=== PATIENT | male | born 1965 | race Caucasian/White ===

== ENCOUNTER 2021-03-19 15:29 | Emergency (ER) | payer OTHER, MEDICAID ==
[~2021-03-19] VITALS: Ht 175.3 cm; Wt 70.3 kg
--- NOTE | 2021-03-19 15:45 | NUR ---
Pt brought by self,A&OX4, pt presents to ER with high blood sugar current BS 567, pt states he in not compliant with insulin since he does not have a refrigerator, skin pink and warm , cap refill <3, VSS , respirations even and unlabored.
[2021-03-19 15:47] VITALS: BP_SYST 138
[2021-03-19 16:48] LABS: BASOPHILS # (AUTO) 0.1 K/uL (0.0-0.2); BASOPHILS % (AUTO) 0.8 % (0.0-2.0); EOSINOPHILS % (AUTO) 0.7 % (0.0-4.0); HEMATOCRIT 41.6 % (36-54); HEMOGLOBIN 14.2 g/dL (14.0-18.0); LYMPHOCYTES # (AUTO) 2.1 K/uL (1.0-5.5); LYMPHOCYTES % (AUTO) 29.8 % (20.5-51.5); MEAN CORPUSCULAR HEMOGLOBIN 31 pg (27-31); MEAN CORPUSCULAR HGB CONC 34 % (32-36); MEAN CORPUSCULAR VOLUME 91 fL (79.0-98.0); MONOCYTES # (AUTO) 0.5 K/uL (0.0-1.0); MONOCYTES % (AUTO) 6.7 % (1.7-9.3); NEUTROPHILS # (AUTO) 4.4 K/uL (1.8-7.7); PLATELET COUNT (AUTO) 228 K/uL (130-430); RED BLOOD CELL COUNT(AUTO) 4.57 MIL/uL (4.2-6.2); WHITE BLOOD COUNT (AUTO) 7.1 K/uL (4.8-10.8)
[2021-03-19 17:40] LABS: BILIRUBIN,URINE NEGATIVE (NEGATIVE); BLOOD, URINE NEGATIVE (NEGATIVE); CLARITY/URINE CLEAR (CLEAR); COLOR,URINE YELLOW (YELLOW); GLUCOSE,URINE 3+ (NEGATIVE); KETONES,URINE NEGATIVE (NEGATIVE); LEUKOCYTE ESTERASE ,URINE NEGATIVE (NEGATIVE); NITRITE, URINE NEGATIVE (NEGATIVE); PROTEIN URINE NEGATIVE (NEGATIVE); UROBILINOGEN,URINE 0.2 (0.2-1.0)
[2021-03-19 17:45] LABS: CREATININE 0.84 mg/dL (0.55-1.30); POTASSIUM 4.7 mmol/L (3.5-5.1)
[2021-03-19 17:52] LABS: ALBUMIN 3.5 g/dL (3.4-4.8); TOTAL BILIRUBIN 0.4 mg/dL (0.0-1.0)
[2021-03-19] MEDS ORDERED: LR 2,000 ML IV ONE (18:00)
[2021-03-19 18:01] LABS: BACTERIA,URINE RARE /HPF (None Seen); RBC,URINE NONE SEEN /HPF (0-3); WBC,URINE NONE SEEN /HPF (0-3)
--- NOTE | 2021-03-19 20:05 | NUR ---
CURLY Pimentel examining patient.
[2021-03-19] MEDS ORDERED: INSULIN REGULAR, HUMAN 10 UNITS/0.1 ML INJ IVP ONE (20:15)
[2021-03-19] MEDS ORDERED: HYDROcodone/ACETAMIN 10-325 MG TAB PO ONE (21:15)
[2021-03-19] MEDS ORDERED: NEU300 PO (22:33)
[2021-03-19] MEDS ORDERED: METF-518 PO (22:33)
--- NOTE | 2021-03-19 23:32 | NUR ---
MOVED TO BED 2. REPORT RECEIVED FROM SALLY MONTAÑO
[2021-03-20] MEDS ORDERED: LR 500 ML IV ONE (01:00)
[2021-03-20] MEDS ORDERED: INSULIN REGULAR, HUMAN 10 UNITS/0.1 ML INJ IVP ONE ×2 (01:00→01:45)
[2021-03-20] MEDS ORDERED: LR 1,000 ML IV ONE (01:15)
--- NOTE | 2021-03-20 01:47 | NUR ---
PATIENT ASLEEP IN BED. PATIENT AROUSABLE WITH VOICE. RESTING COMFORTABLY.
--- NOTE | 2021-03-20 02:06 | NUR ---
PATIENT OUT OF BED TO URINATE. PATIENT REPORTS FEELING BETTER.
[2021-03-20 02:44] VITALS: BP_SYST 126
--- NOTE | 2021-03-20 02:44 | NUR ---
[id number] given written and verbal discharge instructions and verbalizes understanding. ER MD discussed with patient the results and treatment provided. Patient in stable condition. ID arm band removed. IV catheter removed intact and dressing applied, no active bleeding. No Rx given. Patient educated on pain management and to follow up with PMD. Pain Scale 0/10 Opportunity for questions provided and answered.
== END 2021-03-20 02:44 | disposition home or self-care (01) ==
LOC: SED 15:29
DX: E11.65 Type 2 diabetes mellitus with hyperglycemia (principal); E11.40 Type 2 diabetes mellitus with diabetic neuropathy, unspecified; F12.90 Cannabis use, unspecified, uncomplicated; Z59.00 Homelessness unspecified; Z88.0 Allergy status to penicillin; Z88.1 Allergy status to other antibiotic agents; Z79.899 Other long term (current) drug therapy; Z79.84 Long term (current) use of oral hypoglycemic drugs
CPT/HCPCS: 36415; 80053; 81000; 82962; 84484; 85025; 96361 ×2; 96374; 96376; 99284; J1815 ×2; 93005

== ENCOUNTER 2021-03-21 04:15 | Emergency (ER) | payer OTHER, MEDICAID ==
[~2021-03-21] VITALS: Ht 175.3 cm; Wt 70.3 kg
[~2021-03-21 04:15] MED LIST: METF-518 PO; NEU300 PO
--- NOTE | 2021-03-21 04:30 | NUR ---
Pt seen by Dr. Ocampo in waiting area, orders were started there ,well tolerated
[2021-03-21 04:32] VITALS: BP_SYST 181
--- NOTE | 2021-03-21 04:44 | NUR ---
Initial accu chk critical Hi at above 600
[2021-03-21] MEDS ORDERED: NACL 0.9% 1,000 ML IV ONE (04:45)
[2021-03-21] MEDS ORDERED: INSULIN REGULAR, HUMAN 10 UNITS/0.1 ML INJ IVP ONE (04:45)
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
--- NOTE | 2021-03-21 06:09 | NUR ---
IVF and med therapies well tolerated
--- NOTE | 2021-03-21 06:21 | NUR ---
Patient to ER inside hallway to [facility] for evaluation. Side rails up.
[2021-03-21] MEDS ORDERED: LR 1,000 ML IV ONE (06:45)
--- NOTE | 2021-03-21 07:22 | NUR ---
Patient left AMA. Dr. Deepali Yadav aware and signed AMA paper. Patient stated has no pain just wants to go home. ID arm band removed. IV catheter removed intact and dressing applied, no active bleeding. Pain Scale 0.
== END 2021-03-21 07:15 | disposition left against medical advice (07) ==
LOC: SED 04:15
DX: S22.42XA Multiple fractures of ribs, left side, initial encounter for closed fracture (principal); E11.65 Type 2 diabetes mellitus with hyperglycemia; I10 Essential (primary) hypertension; F12.90 Cannabis use, unspecified, uncomplicated; F17.290 Nicotine dependence, other tobacco product, uncomplicated; W18.39XA Other fall on same level, initial encounter; Y93.89 Activity, other specified; Y92.89 Other specified places as the place of occurrence of the external cause; Y99.8 Other external cause status
CPT/HCPCS: 71100; 82962; 96361; 96374; 99283; J7030